=== PATIENT | female | born 1980 | race Caucasian/White ===

== ENCOUNTER → 2016-09-19 | Outpatient (CLI) | payer BC ==
[~2016-09-19] MED LIST: 00186-0372-20 IH; ADDERALL XR 10M10 MG PO; ADDERALL10 MG; ADDERALL5 MG PO; ALBUTEROL0.09 MG/A1 IH; CLEOCIN HC150 MG/CAP PO; CO Q-1010 M1 PO; CYMBALTA; CYMBALTA 20MG20 MG; CYMBALTA 30MG30 MG PO; DITROPAN 5MG TAB5 MG PO; DROSPIRENONE; FELDENE10 MG; FLOVENT 110MCG7.9 GM IH; IRON65 M1 PO; LEVSIN0.125 M1 PO; LYRICA 25MG CAP25 MG PO; LYRICA 75MG CAP75 MG PO; MAG-OX 400400 MG/TAB PO; MOBIC15 MG PO; NEURONTIN300 MG/CAP PO; NORCO 325 MG-51 TAB PO; PLAQUENIL; PLAQUENIL 200M200 MG PO; PRENATAL1 TA1 PO; PROAIR HFA0.09 MG/AC IH; SYNTHROID0.125 MG/T; SYNTHROID0.137 MG PO; TYLENOL W/COD1 UDTAB PO; ULTRAM 50MG TAB50 MG PO; UNIFIBER3 GM/4 GM PO; VIT B2; ZOFRAN 4MG T4 MG/TAB PO; ZOFRAN ODT4 MG PO; ZOLOFT; ZYRTEC-D 12HR 51 TER PO
== END ==
LOC: BHSO 08:33
DX: F90.0 Attention-deficit hyperactivity disorder, predominantly inattentive type (principal)

== ENCOUNTER → 2016-11-28 | Outpatient (CLI) | payer BC | LOC: BHSO 10:27 | DX: F90.0 Attention-deficit hyperactivity disorder, predominantly inattentive type (principal) ==

== ENCOUNTER → 2017-01-02 | Outpatient (CLI) | payer BC | LOC: BHSO 08:27 | DX: F90.0 Attention-deficit hyperactivity disorder, predominantly inattentive type (principal) ==

== ENCOUNTER → 2017-03-03 | Outpatient (CLI) | payer BC | LOC: BHSO 08:45 | DX: F90.0 Attention-deficit hyperactivity disorder, predominantly inattentive type (principal) ==

== ENCOUNTER → 2017-08-07 | Outpatient (CLI) | payer BC | LOC: BHSO 10:04 | DX: F90.0 Attention-deficit hyperactivity disorder, predominantly inattentive type (principal) | CPT/HCPCS: G0463 ==

== ENCOUNTER → 2017-10-06 | Outpatient (CLI) | payer BC | LOC: BHSO 15:02 | DX: F90.0 Attention-deficit hyperactivity disorder, predominantly inattentive type (principal) | CPT/HCPCS: G0463 ==

== ENCOUNTER → 2017-12-08 | Outpatient (CLI) | payer BC | LOC: BHSO 10:50 | DX: F33.42 Major depressive disorder, recurrent, in full remission (principal) | CPT/HCPCS: G0463 ==

== ENCOUNTER → 2018-03-09 | Outpatient (CLI) | payer BC | LOC: BHSO 08:35 | DX: F90.0 Attention-deficit hyperactivity disorder, predominantly inattentive type (principal) | CPT/HCPCS: G0463 ==

== ENCOUNTER → 2018-06-09 | Outpatient (CLI) | payer BC | LOC: BHSO 08:43 | DX: F90.0 Attention-deficit hyperactivity disorder, predominantly inattentive type (principal) | CPT/HCPCS: G0463 ==

== ENCOUNTER → 2018-10-29 | Outpatient (CLI) | payer BC | LOC: BHSO 09:36 | DX: F90.0 Attention-deficit hyperactivity disorder, predominantly inattentive type (principal) | CPT/HCPCS: G0463 ==

== ENCOUNTER → 2019-04-15 | Outpatient (CLI) | payer BC | LOC: BHSO 08:44 | DX: F90.0 Attention-deficit hyperactivity disorder, predominantly inattentive type (principal) | CPT/HCPCS: G0463 ==

== ENCOUNTER → 2020-02-03 | Outpatient (CLI) | payer BC | LOC: COL.LAB 10:05 | DX: Z20.828 Contact with and (suspected) exposure to other viral communicable diseases (principal) ==

== ENCOUNTER 2022-10-11 12:58 | Emergency (ER) | payer BC ==
[~2022-10-11] VITALS: Ht 177.8 cm; Wt 66.1 kg
[2022-10-11 15:01] VITALS: BP 121/82; PULSE 76; TEMP 98.3
== END 2022-10-11 14:53 | disposition home or self-care (01) ==
LOC: COL.ER 12:58
DX: S00.12XA Contusion of left eyelid and periocular area, initial encounter (principal); G43.909 Migraine, unspecified, not intractable, without status migrainosus; Z79.899 Other long term (current) drug therapy; Z28.310 Unvaccinated for COVID-19; W20.8XXA Other cause of strike by thrown, projected or falling object, initial encounter

== ENCOUNTER 2023-05-13 22:43 | Observation (INO) | payer BC ==
[~2023-05-13] VITALS: Ht 177.8 cm; Wt 70.5 kg
[~2023-05-13 22:43] MED LIST changes: -SYNTHROID0.125 MG/T; +SYNTHROID0.125 MG/T PO
[2023-05-13 23:49] LABS: BASO % 0.8 % (0.0-2.0); EOS # 0.2 K/mm3 (0.0-0.7); EOS % 4.4 % (0.0-4.0); GRAN # 2.6 K/mm3 (1.4-6.5); GRAN % 50.4 % (42.2-75.2); HEMATOCRIT 44.2 % (37.0-47.0); HEMOGLOBIN 14.9 g/dl (12.5-16.0); LYMPH # 1.8 K/mm3 (1.2-3.4); LYMPH % 34.6 % (20.0-51.0); MEAN CELL VOLUME 91 fl (80.0-100.0); MEAN CORPUSCULAR HEMOGLOBIN 31 pg (27-31); MEAN CORPUSCULAR HGB CONC 34 g/dl (33.0-37.0); MEAN PLATELET VOLUME 8.7 fl (7.4-10.4); MONO # 0.5 K/mm3 (0.1-0.6); MONO % 9.4 % (1.7-9.3); PLATELET COUNT 241 K/mm3 (130-400); RED BLOOD COUNT 4.86 M/mm3 (4.10-5.30); REDCELL DISTRIBUTION WIDTH-CV 11.9 % (11.5-14.5)
[2023-05-14 00:18] LABS: BILIRUBIN,TOTAL 0.4 mg/dL (0.2-1.2); C-REACTIVE PROTEIN 0.07 mg/dL (0.00-0.50); TOTAL PROTEIN 6.9 gm/dL (6.2-8.1)
[2023-05-14 00:54] LABS: ALBUMIN 4.1 gm/dL (3.5-5.0); CREATININE, serum 0.86 mg/dL (0.57-1.11)
[2023-05-14 01:01] LABS: TROPONIN-I 0.011 ng/mL (0.00-0.033)
[2023-05-14 01:02] VITALS: BP 136/87; O2SAT 98
[2023-05-14] MEDS ORDERED: REQUIP 1MG T1 MG/TAB PO (02:59)
[2023-05-14] MEDS ORDERED: MYDAYIS ER 3737.5 MG PO (03:00)
[2023-05-14] MEDS ORDERED: SINGULAIR 110 MG/TAB PO (03:01)
[2023-05-14] MEDS ORDERED: ADDERALL5 MG PO (03:02)
[2023-05-14] MEDS ORDERED: DITROPAN XL 5MG5 M1 PO (03:03)
[2023-05-14] MEDS ORDERED: PLAQUENIL 200M200 MG PO (03:04)
[2023-05-14] MEDS ORDERED: SYNTHROID0.2 MG/TAB PO (03:07)
[2023-05-14] MEDS ORDERED: 00186-0370-20 IH (03:09)
[2023-05-14] MEDS ORDERED: RIBOFLAVIN400 MG PO (03:11)
[2023-05-14 03:39] VITALS: BP 131/78; PULSE 87; TEMP 98
--- NOTE | 2023-05-14 04:00 | NUR ---
Admitted to medical floor from ER, having chest pain and pain to right arm,, states the pain is better after the 2 doses of Morphine IV in ER, states pain is 3/10 at this time- denies need for pain meds at this time,, will try to sleep, VSS, tele on- SR,, IV fluids of NS at 125cc/hr. Echo in the AM.
[2023-05-14 07:23] VITALS: BP 123/77; PULSE 91; TEMP 97.6
--- NOTE | 2023-05-14 09:42 | NUR ---
Initial visit; Patient thanked Landscape Photographer for looking in on her and offering God's blessings. Patient and appeared glad to welcome Landscape Photographer and patient was receptive to Landscape Photographer keeping her in her prayers.
[2023-05-14 11:24] VITALS: BP 122/79; PULSE 70; TEMP 97.5
[2023-05-14 11:29] VITALS: BP 118/76
[2023-05-14] MEDS ORDERED: LIPITOR 80MG80 MG PO (11:46)
[2023-05-14] MEDS ORDERED: TOPROL XL 25MG25 MG PO (11:46)
[2023-05-14] MEDS ORDERED: PLAVIX 75MG TAB75 MG PO (11:46)
[2023-05-14] MEDS ORDERED: ASPIRIN E.C. 8181 MG PO (11:47)
--- NOTE | 2023-05-14 13:05 | NUR ---
fabric worker foreman met with patient to discuss discharge planning. Patient lives in [place] with her , Rupert, Paco# [phone]. PCP is Dr. Sydney Siddiqui, pharmacy is [facility]. No issues affording medications. Patient reports she has an old DPOA-HC from the [facility] but she may need to update it. SW provided a blank DPOA-HC to review as patient wanted to think about it prior to completing the form. Patient reports she has braces but no other DME. Patient reports to be independent with ADLS and has a form of transportation to get to and from appointments. Patient would like to return home at time of discharge. Discharge Plan: Home
[2023-05-14 14:42] VITALS: BP_SYST 118
--- NOTE | 2023-05-14 14:45 | NUR ---
PATIENT DISCHARGE INSTRUCTIONS GIVEN. QUESTIONS WERE ANSWERED. PATIENT IV DISCONTINUED. TELE DISCONTINUED.
== END 2023-05-14 14:45 | disposition home or self-care (01) ==
LOC: COL.ER 22:43 → MEDICAL 05-14 01:07
PROVIDERS: Nurse Practitioner; ADMIT Internal Medicine
DX: R07.89 Other chest pain (principal); R06.02 Shortness of breath; J45.909 Unspecified asthma, uncomplicated; E03.9 Hypothyroidism, unspecified; F90.9 Attention-deficit hyperactivity disorder, unspecified type; I07.1 Rheumatic tricuspid insufficiency; Z79.890 Hormone replacement therapy; Z79.899 Other long term (current) drug therapy
CPT/HCPCS: G0378; J2270; J7030